=== PATIENT | female | born 1960 | race Caucasian/White ===

== ENCOUNTER 2018-10-08 09:53 | Day surgery (SDC) | payer MEDICARE, BC ==
[~2018-10-08] VITALS: Ht 171.4 cm; Wt 135.0 kg
[~2018-10-08 09:53] MED LIST: ELAVIL10 MG PO; ELAVIL25 MG PO; HCTZ25 MG PO; KEPPRA250 MG PO; LIORESAL 10 MG10 MG PO; MOBIC7.5 MG PO; PROVIGIL200 MG PO; REGLAN10 MG PO; ZOLOFT50 MG PO
[2018-10-08 10:08] LABS: HEMATOCRIT 42.4 % (36.0-48.0); HEMOGLOBIN 14.4 g/dL (12-16); MCH 28.5 pg (26.0-34.0); MEAN PLATELET VOLUME 9.1 fL (7.4-10.4); RBC 5.05 10x6/uL (4.00-5.40); RDW 13.2 % (11.5-14.5); WBC 7.2 10x3/uL (4.8-10.8)
[2018-10-08 10:30] LABS: ANION GAP 14.9 mmol/L (8-16); CALCIUM 9.5 mg/dL (8.5-10.1); POTASSIUM - SERUM 3.9 mmol/L (3.5-5.1)
[2018-10-08] MEDS ORDERED: ZOCOR40 MG PO (11:14)
[2018-10-08] MEDS ORDERED: MULTI-DAY VITAM1 TAB PO (11:16)
[2018-10-08] MEDS ORDERED: RED YEAST RICE600 MG PO (11:17)
[2018-10-08] MEDS ORDERED: NIACIN100 MG PO (11:17)
[2018-10-08] MEDS ORDERED: POTASSIUM (11:18)
[2018-10-08] MEDS ORDERED: ASCORBIC ACID500 MG PO (11:19)
[2018-10-08] MEDS ORDERED: VITAMIN E200 UNI1 (11:20)
[2018-10-08] MEDS ORDERED: FISH OIL 1,0001 CA1 PO (11:20)
[2018-10-08] MEDS ORDERED: IRON PO (11:21)
[2018-10-08] MEDS ORDERED: [UNRECOGNIZED DRUG - OTHER] PO (11:22)
[2018-10-08] MEDS ORDERED: CO Q-10100 MG PO (11:23)
[2018-10-08] MEDS ORDERED: GARLIC PO (11:24)
[2018-10-08] MEDS ORDERED: TURMERIC CURCUMIN (11:25)
[2018-10-08 11:49] VITALS: Ht 171.4 cm; Wt 135.0 kg
--- NOTE | 2018-10-08 13:38 | NUR ---
[address] LUIS HAS ROUNDED.
--- NOTE | 2018-10-08 18:50 | OP ---
PATIENT NAME: HARMONY PADGETT MEDICAL RECORD: [id number] :58 LOCATION:D.OPS ADMISSION DATE: SURGEON: ZHUAIR LUIS MD DATE OF OPERATION: 10/08/2018 PROCEDURE: Colonoscopy with biopsy. REFERRING PHYSICIAN: Namita Lau MD INDICATIONS: Ms. Padgett is a very pleasant 58-year-old woman with a history of PLS, who presents for outpatient surveillance colonoscopy. Her last EGD and colonoscopy was 04/23/2012 with findings showing mild erosive gastritis, small gastric polyp, nonspecific colitis, small ascending colon polyp, mild sigmoid diverticulosis, and mild internal hemorrhoids. Duodenal biopsies showed borderline chronic duodenitis. Gastric biopsy showed chronic mild gastritis negative for H. pylori, gastric polyp was a hyperplastic type. Esophageal biopsy showed chronic active esophagitis, mild reflux type. Ascending colon polyp was hyperplastic. The terminal ileum biopsy showed no diagnostic abnormality, and ascending colon biopsy showed mild chronic inflammation, nonspecific. She presents for outpatient colonoscopy. PREMEDICATIONS: Total IV anesthesia (BMI of 44). INSTRUMENT: [employer] video pediatric colonoscope. PROCEDURE AND FINDINGS: After receiving informed consent, Ms. Padgett was placed in left lateral decubitus position, sedated as per anesthesia. After achieving adequate level of sedation, digital rectal exam was performed that showed no external hemorrhoidal tags, fissures or fistulas. Normal sphincter tone. No palpable rectal masses. The colonoscope was introduced per rectally and advanced to the cecum without difficulty. The cecum, IC valve, and appendiceal orifice were identified and appeared normal. As the colonoscope was withdrawn, careful inspection was made of the bass of the colon. Overall mucosa had normal vascular and fold pattern. There was one solitary medium-sized diverticulum noted in the ascending colon. There were a few diverticula seen scattered in the distal sigmoid colon. In the rectum was a small 0.25-cm sessile polyp that was cold biopsied. Retroflexion in the rectum showed no internal hemorrhoids. A good prep was present. Withdrawal time was 8 minutes. Ms. Padgett tolerated the procedure well. No immediate complications. ASSESSMENT: 1. Small rectal polyp, status post cold biopsy. 2. Mild sigmoid diverticulosis. 3. Solitary diverticulum in the ascending colon. RECOMMENDATIONS: 1. Follow up histopathology. 2. High-fiber diet. 3. Surveillance colonoscopy in 5 years pending nature of polyp histopathology. TRANSINT:[id number] Voice Confirmation ID: [id number] DOCUMENT ID: [id number] OPERATIVE REPORT [id number] HARMONY PADGETT TERRI MD at 1850 CC: NAMITA LAU MD [id number] DICTATION DATE: 10/08/18 1321 [employer] PHOTO EDITOR: 10/08/18 1344 [facility] 10/08/18 [place] [id number] [place] [id number]
== END 2018-10-08 14:19 | disposition home or self-care (01) ==
LOC: D.OPS 09:53
PROVIDERS: Anesthesiology; ATTEND Internal Medicine Gastroenterology
DX: K63.5 Polyp of colon (principal); K57.90 Diverticulosis of intestine, part unspecified, without perforation or abscess without bleeding